=== PATIENT | female | born 1995 | race Caucasian/White ===

== ENCOUNTER 2021-04-13 16:34 | Emergency (ER) | payer MEDICAID ==
[~2021-04-13] VITALS: Ht 152.4 cm; Wt 67.1 kg
[2021-04-13 17:09] VITALS: BP 109/66
--- NOTE | 2021-04-13 17:13 | NUR ---
TENT 1
[2021-04-13] MEDS ORDERED: CODE5SYR5 PO (17:50)
[2021-04-13] MEDS ORDERED: BENZ1LOZ98 PO (17:50)
[2021-04-13] MEDS ORDERED: PRED20TA5 PO (17:50)
--- NOTE | 2021-04-13 18:12 | NUR ---
Patient discharged with v/s stable. Written and verbal after care instructions given and explained. Patient alert, oriented and verbalized understanding of instructions. Ambulatory with steady gait. All questions addressed prior to discharge. ID band removed. Patient advised to follow up with PMD. Rx of BENZOCAINE/MENTHOL, PRMETHAZINE HCI/CODEINE, PREDNISONE given.Opportunity to ask questions provided and answered.
== END 2021-04-13 18:11 | disposition home or self-care (01) ==
LOC: MED 16:34
DX: J20.9 Acute bronchitis, unspecified (principal); Z79.899 Other long term (current) drug therapy
CPT/HCPCS: 71045; 99283

== ENCOUNTER 2022-03-14 12:35 | Emergency (ER) | payer SELFPAY ==
[~2022-03-14] VITALS: Ht 152.4 cm; Wt 73.0 kg
[~2022-03-14 12:35] MED LIST: BENZ-301 PO; CODE5SYR5 PO; PRED20TA5 PO
[2022-03-14 12:40] VITALS: BP 137/85
--- NOTE | 2022-03-14 12:46 | NUR ---
Pt given urine cup to provide sample.
[2022-03-14] MEDS ORDERED: ACETAMINOPHEN EXTRA STRENGTH 500 MG TAB PO ONE (13:05)
--- NOTE | 2022-03-14 13:30 | NUR ---
PT RECEIVED, CARE ASSUMED. PT PRESENTS SELF TO ER WITH C/O RIGHT FOOT PAIN. NO DEFORMAITES. +CSM. WILL CONTINUE TO MONITOR
[2022-03-14] MEDS ORDERED: NAPR-1704 PO (13:49)
[2022-03-14 14:13] VITALS: BP 120/74
== END 2022-03-14 14:13 | disposition home or self-care (01) ==
LOC: MED 12:35
DX: S90.111A Contusion of right great toe without damage to nail, initial encounter (principal); X58.XXXA Exposure to other specified factors, initial encounter; Y93.89 Activity, other specified; Y92.89 Other specified places as the place of occurrence of the external cause; Y99.8 Other external cause status
CPT/HCPCS: 73660; 81025; 99283; Q0092